=== PATIENT | male | born 1985 ===

== ENCOUNTER → 2019-02-02 14:43 | Outpatient (CLI) | payer BC ==
[2019-02-02 15:36] LABS: CHOL - HDL RATIO 5.2 ratio (2.3-4.9); LDL-HDL RATIO 3.4 ratio (1.5-3.5)
== END | disposition home or self-care (01) ==
LOC: D.LABREF 14:43
PROVIDERS: ATTEND Pediatrics
DX: Z00.00 Encounter for general adult medical examination without abnormal findings (principal)